=== PATIENT | female | born 1955 | race Caucasian/White ===

== ENCOUNTER 2016-10-16 21:52 | Emergency (ER) | payer BC ==
--- NOTE | ~2016-10-16 | ER ---
PATIENT'S NAME: SERENA VICENTE [facility] AGE: 61 Y [address] ROOM: [place] [id number] LOCATION: [facility] ADMIT DATE: 10/16/2016 ER/Outpatient Report DISCHARGE DATE: 10/16/2016 FAMILY PHYSICIAN: THU HILL ATTENDING PHYSICIAN: Nguyễn Urena Time of Arrival: 2152 hours. Time of Evaluation: 2152 hours. CHIEF COMPLAINT: Weakness. HISTORY OF PRESENT ILLNESS: The patient is a 61-year-old female who presents to the emergency department today with chief complaint of weakness. She reports this started today. The patient was driving from [place]. She does not have any air conditioning in her car. She reports she has been exposed to the heat ever since. She is here visiting her daughters. She had nausea and vomiting x1. Denies any chest pain. No shortness of breath. No fevers or chills. PAST MEDICAL HISTORY: Mvn-nmedvkw-iwktiwghb diabetes, hypothyroid, hypertension, and dyslipidemia. PAST SURGICAL HISTORY: None. SOCIAL HISTORY: The patient smokes approximately 10 cigarettes per day for approximately 20 years. She drinks alcohol socially. She denies any illicit drug use. ALLERGIES: NO KNOWN DRUG ALLERGIES. MEDICATIONS: Please see list. PRIMARY CARE DOCTOR: Lorne Agustin. REVIEW OF SYSTEMS: All systems are reviewed by myself and are negative with the exception of those discussed in the HPI and past medical history. PHYSICAL EXAMINATION: VITAL SIGNS: Blood pressure 137/76, pulse 90, respiratory rate 18, PATIENT'S NAME: SERENA VICENTE [facility] AGE: 61 Y [address] ROOM: [place] [id number] LOCATION: [facility] ADMIT DATE: 10/16/2016 ER/Outpatient Report DISCHARGE DATE: 10/16/2016 FAMILY PHYSICIAN: THU HILL ATTENDING PHYSICIAN: Nguyễn Urena temperature 96.5, and oxygen saturation 96% on room air. GENERAL: The patient is a 61-year-old female who appears her stated age, in no acute distress. HEENT: Head normocephalic and atraumatic. Pupils are equal, round, and reactive to light. NECK: Supple. There is no nuchal rigidity. CARDIOVASCULAR: Regular rate and rhythm. No murmurs, rubs, or gallops. LUNGS: Clear to auscultation bilaterally. No wheezes, rales, or rhonchi. ABDOMEN: Soft, nontender, and nondistended. No rebound, rigidity, or guarding. MUSCULOSKELETAL: The patient moves all 4 extremities. NEUROLOGICAL: GCS of 14. Downward going toes. Equal senior manager mmcoe strength bilaterally. SKIN: Warm and dry. LABORATORY DATA AND X-RAYS: CBC is unremarkable. EKG is obtained and was interpreted by myself at 2217 hours and shows sinus rhythm with a rate of 87, normal axis. NM interval 206, normal interval. No ST elevation or ST depression. T-wave inversions. Lactate is 2.6. Procalcitonin is less than 0.05. CMP is unremarkable. LFTs normal. Cardiac enzymes are normal. Coags are normal. Two-view chest x-ray shows no acute process. IMPRESSION: 1. Heat exposure. 2. Initial visit. EMERGENCY DEPARTMENT COURSE: The patient was brought back to the examination room. She was seen and evaluated by myself. IV was established. Laboratory analysis and imaging were obtained as described above. The patient was given 1 liter of normal saline. She was given 4 mg of Zofran IV. She was given another liter of normal saline. I discussed the results with the patient. She has significantly improved at this time. She is up and ambulating throughout the emergency department. She feels much better. She does have a house to go home and does have air conditioning. I have discussed return care instructions including worsening symptoms or any other concerns, to return to the emergency department as soon as possible. The patient is agreeable. She is without further questions at this time. DISPOSITION: The patient was discharged to home in good condition. PATIENT'S NAME: SERENA VICENTE [facility] AGE: 61 Y [address] ROOM: [place] [id number] LOCATION: [facility] ADMIT DATE: 10/16/2016 ER/Outpatient Report DISCHARGE DATE: 10/16/2016 FAMILY PHYSICIAN: THU HILL ATTENDING PHYSICIAN: Nguyễn Urena DO RAMILA ALBERT/modl /[id number] d: 10/17/16 1106 t: 10/18/16 2103, OUTPATIENT REPORT
[2016-10-16 22:15] LABS: BASOPHIL # 0.1 K/uL (0.0-0.2); BASOPHIL % 0.6 %; EOSINOPHIL # 0.3 K/uL (0.0-0.5); EOSINOPHIL % 3.5 %; HEMATOCRIT 36.2 % (33.0-46.0); HEMOGLOBIN 12.6 g/dL (10.0-15.0); IMMATURE GRANULOCYTE # 0.1 K/uL (0.0-0.3); IMMATURE GRANULOCYTE % 0.6 %; LYMPHOCYTE # 3.7 K/uL (0.8-4.0); MCH 30.8 pg (27.0-34.0); MCHC 34.8 gm/dL (32.0-36.5); MCV 88.5 fl (83.0-98.0); MONOCYTE # 0.9 K/uL (0.0-1.0); MONOCYTE % 10.5 %; MPV 8.8 fl (9.4-12.4); NEUTROPHIL # (ANC) 3.4 K/uL (1.8-7.8); NEUTROPHIL % 40.8 %; NRBC % 0 /100WBC (0-0.00); PLATELET COUNT 235 K/uL (150-450); RBC 4.09 M/uL (3.50-5.50); RDW-CV 12.1 % (11.9-14.6); WBC 8.3 K/uL (4.0-11.0)
[2016-10-16 22:36] LABS: ALBUMIN 3.4 gm/dL (3.5-5.0); ALK PHOS 78 IU/L (33-138); ALT 51 IU/L (12-78); ANION GAP 14.2 (10.0-19.0); AST 28 IU/L (10-40); BLOOD UREA NITROGEN 12 mg/dL (6-24); CALCIUM 8.1 mg/dL (8.5-10.5); CHLORIDE 103 mMol/L (96-110); CO2 25 mMol/L (22-32); CPK 107 IU/L (21-215); CREATININE 0.9 mg/dL (0.5-1.1); MAGNESIUM 1.8 mg/dL (1.8-2.6); POTASSIUM 3.2 mMol/L (3.7-5.1); SODIUM 139 mMol/L (135-145); TOTAL BILIRUBIN 0.3 mg/dL (0.0-1.5); TOTAL PROTEIN 6.6 g/dL (6.0-8.4)
[2016-10-16 22:54] LABS: INR - (THERAPEUTIC) 0.94 (0.92-1.07); PROTIME 9.9 SECONDS (9.8-11.4)
[2016-10-16 23:22] LABS: PTT 22 SECONDS (25-32)
== END 2016-10-16 23:58 | disposition disaster alternative care site (69) ==
LOC: GMED 21:52
PROVIDERS: Emergency Medicine
DX: R11.2 Nausea with vomiting, unspecified (principal); R53.1 Weakness; E11.9 Type 2 diabetes mellitus without complications; E03.9 Hypothyroidism, unspecified; I10 Essential (primary) hypertension; E78.5 Hyperlipidemia, unspecified; F17.210 Nicotine dependence, cigarettes, uncomplicated; Z79.84 Long term (current) use of oral hypoglycemic drugs; X30.XXXA Exposure to excessive natural heat, initial encounter
CPT/HCPCS: J2405; J7030

== ENCOUNTER → 2016-10-16 | Outpatient (CLI) | payer BC | END | disposition disaster alternative care site (69) | LOC: GAMB 21:34 | DX: R55 Syncope and collapse (principal); I10 Essential (primary) hypertension; E78.5 Hyperlipidemia, unspecified; R06.9 Unspecified abnormalities of breathing; R41.0 Disorientation, unspecified; R42 Dizziness and giddiness; R11.2 Nausea with vomiting, unspecified; R53.1 Weakness; Z79.84 Long term (current) use of oral hypoglycemic drugs; Z79.899 Other long term (current) drug therapy | CPT/HCPCS: A0425; A0427; J2405; J7030 ==